=== PATIENT | female | born 1990 | race Caucasian/White ===

== ENCOUNTER 2018-10-08 06:50 | Emergency (ER) | payer MEDICAID, OTHER ==
[~2018-10-08] VITALS: Ht 160 cm; Wt 55.6 kg
[~2018-10-08 06:50] MED LIST: NITR100C6 PO; NO HOME MEDS
[2018-10-08 08:11] VITALS: BP 101/59
[2018-10-08] MEDS ORDERED: normal saline 1000ML IV soln IVB ONE ×2 (08:35)
--- NOTE | 2018-10-08 08:45 | NUR ---
Pt. wants to leave. Refusing IV start and labs. States she will go to [facility] tomorrow or [facility] later today.
--- NOTE | 2018-10-08 08:47 | NUR ---
Pt. signed AMA form.
== END 2018-10-08 08:50 | disposition left against medical advice (07) ==
LOC: ER 06:50
DX: O26.892 Other specified pregnancy related conditions, second trimester (principal); R50.9 Fever, unspecified; R05 Cough; J02.9 Acute pharyngitis, unspecified; R09.81 Nasal congestion; F17.200 Nicotine dependence, unspecified, uncomplicated; Z56.0 Unemployment, unspecified; Z88.0 Allergy status to penicillin; Z3A.25 25 weeks gestation of pregnancy
CPT/HCPCS: 99281

== ENCOUNTER 2019-06-19 09:59 | Emergency (ER) | payer MEDICAID ==
[~2019-06-19] VITALS: Ht 160 cm; Wt 60.3 kg
[2019-06-19 11:17] VITALS: BP 122/67
== END 2019-06-19 11:18 | disposition home or self-care (01) ==
LOC: ER 10:00
DX: R21 Rash and other nonspecific skin eruption (principal); F15.90 Other stimulant use, unspecified, uncomplicated; Z56.0 Unemployment, unspecified; Z88.0 Allergy status to penicillin; Z79.899 Other long term (current) drug therapy
CPT/HCPCS: 99281

== ENCOUNTER 2019-06-23 10:11 | Emergency (ER) | payer MEDICAID ==
[~2019-06-23] VITALS: Ht 160 cm; Wt 59.2 kg
[2019-06-23 10:13] VITALS: BP 110/74
[2019-06-23] MEDS ORDERED: CLIN300C71 PO (10:25)
[2019-06-23] MEDS ORDERED: CHLO473M3 PO (10:25)
== END 2019-06-23 10:48 | disposition home or self-care (01) ==
LOC: ER 10:11
DX: K04.7 Periapical abscess without sinus (principal); F15.90 Other stimulant use, unspecified, uncomplicated; Z56.0 Unemployment, unspecified; Z86.69 Personal history of other diseases of the nervous system and sense organs; Z88.0 Allergy status to penicillin; Z79.899 Other long term (current) drug therapy
CPT/HCPCS: 99283

== ENCOUNTER 2019-07-03 12:43 | Emergency (ER) | payer MEDICAID ==
[~2019-07-03] VITALS: Ht 160 cm; Wt 59.1 kg
[~2019-07-03 12:43] MED LIST changes: +CHLO473M3 PO; +CLIN300C71 PO
[2019-07-03 12:59] VITALS: BP 103/80
[2019-07-03] MEDS ORDERED: predniSONE 20 mg tablet PO ONE (14:45)
[2019-07-03] MEDS ORDERED: diphenhydrAMINE 25mg capsule PO ONE (14:45)
[2019-07-03] MEDS ORDERED: PRED20TA PO (14:53)
[2019-07-03] MEDS ORDERED: DIPH-423 PO (14:53)
[2019-07-03] MEDS ORDERED: EPIN0.3P3 TD (14:53)
== END 2019-07-03 15:14 | disposition home or self-care (01) ==
LOC: ER 12:43
DX: T63.441A Toxic effect of venom of bees, accidental (unintentional), initial encounter (principal); F15.90 Other stimulant use, unspecified, uncomplicated; Z56.0 Unemployment, unspecified; Z86.69 Personal history of other diseases of the nervous system and sense organs; Z88.0 Allergy status to penicillin; Z79.899 Other long term (current) drug therapy; Y92.89 Other specified places as the place of occurrence of the external cause
CPT/HCPCS: 99283; J7512; Q0163

== ENCOUNTER 2019-07-18 07:33 | Emergency (ER) | payer MEDICAID ==
[~2019-07-18] VITALS: Ht 160 cm; Wt 56.0 kg
[~2019-07-18 07:33] MED LIST changes: +DIPH-423 PO; +EPIN0.3P3 TD; +PRED20TA PO
[2019-07-18 07:35] VITALS: BP 103/65
[2019-07-18] MEDS ORDERED: PRED20TA PO (07:54)
[2019-07-18] MEDS ORDERED: CLIN150C2 PO (07:54)
[2019-07-18] MEDS ORDERED: HYDR-3965 PO (07:54)
[2019-07-18] MEDS ORDERED: acetaminophen 325mg tablet PO ONE (07:55)
[2019-07-18] MEDS ORDERED: ONDA4TAB6 PO (07:56)
== END 2019-07-18 08:14 | disposition home or self-care (01) ==
LOC: ER 07:33
DX: K04.7 Periapical abscess without sinus (principal); K08.89 Other specified disorders of teeth and supporting structures; F15.90 Other stimulant use, unspecified, uncomplicated; Z86.69 Personal history of other diseases of the nervous system and sense organs; Z56.0 Unemployment, unspecified; Z88.0 Allergy status to penicillin; Z79.899 Other long term (current) drug therapy
CPT/HCPCS: 99283

== ENCOUNTER 2019-08-14 19:09 | Emergency (ER) | payer MEDICAID, OTHER ==
[~2019-08-14] VITALS: Ht 160 cm; Wt 59.1 kg
[~2019-08-14 19:09] MED LIST changes: +CLIN150C2 PO; +HYDR-3965 PO; +ONDA4TAB6 PO
[2019-08-14 19:13] VITALS: BP 104/67
[2019-08-14] MEDS ORDERED: IBUP-1984 PO (20:51)
[2019-08-14] MEDS ORDERED: ibuprofen tablet 400 MG TABLET PO ONE (20:55)
== END 2019-08-14 21:13 | disposition home or self-care (01) ==
LOC: ER 19:10
DX: S93.492A Sprain of other ligament of left ankle, initial encounter (principal); F15.90 Other stimulant use, unspecified, uncomplicated; Z86.69 Personal history of other diseases of the nervous system and sense organs; Z88.0 Allergy status to penicillin; Z79.899 Other long term (current) drug therapy; X50.1XXA Overexertion from prolonged static or awkward postures, initial encounter; Y93.89 Activity, other specified; Y92.89 Other specified places as the place of occurrence of the external cause; Y99.8 Other external cause status
CPT/HCPCS: 29515; 73610; 99284

== ENCOUNTER 2019-08-25 22:17 | Emergency (ER) | payer MEDICAID, OTHER ==
[~2019-08-25] VITALS: Ht 160 cm; Wt 56.0 kg
[~2019-08-25 22:17] MED LIST changes: -CLIN150C2 PO; -HYDR-3965 PO; -PRED20TA PO
[2019-08-26] MEDS ORDERED: CLIN300C70 PO (00:23)
[2019-08-26] MEDS ORDERED: IBUP-1984 PO (00:23)
[2019-08-26 00:33] VITALS: BP 98/58
== END 2019-08-26 00:30 | disposition home or self-care (01) ==
LOC: ER 22:17
DX: K04.7 Periapical abscess without sinus (principal); K02.9 Dental caries, unspecified; F15.90 Other stimulant use, unspecified, uncomplicated; Z86.69 Personal history of other diseases of the nervous system and sense organs; Z88.0 Allergy status to penicillin; Z79.899 Other long term (current) drug therapy
CPT/HCPCS: 99283

== ENCOUNTER 2019-08-31 10:24 | Emergency (ER) | payer MEDICAID ==
[~2019-08-31] VITALS: Ht 160 cm; Wt 56.8 kg
[~2019-08-31 10:24] MED LIST changes: +CLIN300C70 PO; +IBUP-1984 PO
[2019-08-31 10:38] VITALS: BP 105/55
== END 2019-08-31 11:30 | disposition home or self-care (01) ==
LOC: ER 10:25
DX: Z02.1 Encounter for pre-employment examination (principal); F15.90 Other stimulant use, unspecified, uncomplicated; Z88.0 Allergy status to penicillin; Z91.030 Bee allergy status
CPT/HCPCS: 99281

== ENCOUNTER 2019-09-15 15:21 | Emergency (ER) | payer MEDICAID ==
[~2019-09-15] VITALS: Ht 160 cm; Wt 54.0 kg
[~2019-09-15 15:21] MED LIST changes: -CLIN300C70 PO; -IBUP-1984 PO
[2019-09-15 17:02] VITALS: BP 83/46
[2019-09-15] MEDS ORDERED: normal saline 1000ML IV soln IVB ONE (17:10)
[2019-09-15] MEDS ORDERED: acetaminophen 325mg tablet PO ONE (17:20)
== END 2019-09-15 17:43 | disposition left against medical advice (07) ==
LOC: ER 15:22
DX: M79.18 Myalgia, other site (principal); R50.9 Fever, unspecified; R11.2 Nausea with vomiting, unspecified; F15.90 Other stimulant use, unspecified, uncomplicated; Z88.0 Allergy status to penicillin; Z91.030 Bee allergy status
CPT/HCPCS: 99281

== ENCOUNTER 2019-10-26 09:41 | Emergency (ER) | payer MEDICAID ==
[~2019-10-26] VITALS: Ht 160 cm; Wt 56.8 kg
[2019-10-26 10:27] LABS: CLARITY,URINE CLEAR (Clear); COLOR,URINE YELLOW (Yellow); GLUCOSE, URINE NEGATIVE (Neg); KETONES,URINE NEGATIVE (Neg); LEUKOCYTE ESTERASE ,URINE SMALL (Neg); NITRITES, URINE NEGATIVE (Neg); OCCULT BLOOD,URINE SMALL (Neg); PROTEIN,URINE TRACE mg/dl (Neg); UROBILINOGEN,URINE 0.2 E.U/dL (0.2-1.0)
[2019-10-26 10:28] LABS: UA COLLECTION TYPE CLN CATCH MIDSTREAM; URINE HCG NEGATIVE (NEG)
[2019-10-26 10:33] LABS: MUCUS STRANDS MODERATE /LPF (Neg); SQUAMOUS EPITHELIAL CELL,UR MANY /LPF (FEW)
[2019-10-26 10:35] LABS: BACTERIA,URINE 1+ /HPF (Neg); WBC CLUMPS,URINE FEW /HPF (NEGATIVE)
[2019-10-26 10:36] LABS: CAL OXALATE CRYSTALS 1+ /HPF (NEGATIVE)
[2019-10-26 10:43] LABS: BASOPHILS % (AUTO) 0.4 % (0-1); EOSINOPHILS # (AUTO) 0.2 X10'3 (0-0.9); EOSINOPHILS % (AUTO) 1.5 % (0-6); HEMATOCRIT 39.9 % (35.0-45.0); HEMOGLOBIN 13.7 g/dl (12.0-16.0); LYMPHOCYTES # (AUTO) 1.1 X10'3 (1.1-4.8); LYMPHOCYTES % (AUTO) 10.5 % (21-51); MEAN CORPUSCULAR HEMOGLOBIN 29.6 PG (27.0-31.0); MEAN CORPUSCULAR HGB CONC 34.2 g/dL (33.0-36.5); MEAN CORPUSCULAR VOLUME 86.4 FL (78-98); MEAN PLATELET VOLUME 7.3 FL (7.4-10.4); MONOCYTES # (AUTO) 0.2 X10'3 (0-0.9); MONOCYTES % (AUTO) 1.8 % (2-12); NEUTROPHILS # (AUTO) 9.1 X10'3 (1.8-7.7); NEUTROPHILS % (AUTO) 85.8 % (42-75); PLATELET COUNT 510 X10'3 (140-440); RED BLOOD COUNT 4.61 X10'6 (4.20-5.60); RED CELL DISTRIBUTION WIDTH 13.8 % (11.5-14.5); WHITE BLOOD COUNT 10.5 X10'3 (4.5-11.0)
[2019-10-26 10:55] LABS: ALANINE AMINOTRANSFERASE 145 U/L (12-78); ALBUMIN 3.3 G/DL (3.4-5.0); ALBUMIN/GLOBULIN RATIO 0.7 (1.1-1.5); ALKALINE PHOSPHATASE 135 IU/L (46-116); ANION GAP 8 (8-16); ASPARTATE AMINO TRANSFERASE 97 U/L (10-37); BILIRUBIN,TOTAL 0.2 MG/DL (0.1-1.0); BLOOD UREA NITROGEN 12 MG/DL (7-18); BUN/CREATININE RATIO 18.8 (6.6-38.0); CALCIUM 8.9 MG/DL (8.5-10.1); CHLORIDE 102 MMOL/L (99-107); CREATININE 0.64 MG/DL (0.40-0.90); GLUCOSE 103 MG/DL (70-104); LIPASE < 50 U/L (73-393); POTASSIUM 3.6 MMOL/L (3.5-5.1); SODIUM 140 MMOL/L (135-145); TOTAL PROTEIN 8.3 G/DL (6.4-8.2); eGFR > 90 ML/MIN
[2019-10-26] MEDS ORDERED: diazepam inj 5 MG/ML inj. IV ONE (11:10)
[2019-10-26] MEDS ORDERED: normal saline 1000ML IV soln IVB ONE (11:10)
[2019-10-26 11:11] VITALS: BP 113/70
--- NOTE | 2019-10-26 11:29 | NUR ---
Pt refusing to be "poked" for an IV stating, "you guys will make me look like a junky. If I am being poked, I will poke myself." Let pt know that we are not able to allow her to start her own IV. Pt refused medications.
[2019-10-26] MEDS ORDERED: IBUP-1984 PO (12:41)
== END 2019-10-26 12:56 | disposition home or self-care (01) ==
LOC: ER 09:42
DX: R10.84 Generalized abdominal pain (principal); K59.00 Constipation, unspecified; R11.0 Nausea; F15.90 Other stimulant use, unspecified, uncomplicated; Z88.0 Allergy status to penicillin
CPT/HCPCS: 36415; 74176; 80053; 81001; 81025; 83690; 85025; 99284

== ENCOUNTER 2021-10-01 16:29 | Emergency (ER) | payer MEDICAID ==
[~2021-10-01] VITALS: Ht 160 cm; Wt 59.0 kg
[2021-10-01 16:55] VITALS: BP 87/56
[2021-10-01] MEDS ORDERED: ALBU6.7H9 INH (17:34)
--- NOTE | 2021-10-01 17:45 | NUR ---
Pt given and understands d/c instructions. Ambulatory with a steady gait.
== END 2021-10-01 17:45 | disposition home or self-care (01) ==
LOC: ER 16:30
DX: U07.1 COVID-19 (principal); J06.9 Acute upper respiratory infection, unspecified; F15.90 Other stimulant use, unspecified, uncomplicated; Z72.0 Tobacco use; Z86.69 Personal history of other diseases of the nervous system and sense organs; Z88.0 Allergy status to penicillin; Z79.2 Long term (current) use of antibiotics; Z79.899 Other long term (current) drug therapy
CPT/HCPCS: 36415; 99283; U0003; U0005

== ENCOUNTER 2023-04-28 21:19 | Emergency (ER) | payer MEDICAID ==
[~2023-04-28] VITALS: Ht 160 cm; Wt 53.2 kg
[~2023-04-28 21:19] MED LIST changes: +ALBU6.7H14 INH
[2023-04-28 21:45] VITALS: BP 86/54; PULSE 103; RESP 18; TEMP 101; O2SAT 97
[2023-04-28] MEDS ORDERED: acetaminophen 325mg tablet PO ONE (21:55)
--- NOTE | 2023-04-28 22:18 | NUR ---
Lab states that the patient moved her arm when she was getting drawn and than was mad that the marine engine machinist didn't "go in my hand like they do at [facility]" Than the patient was mad that she was going to have another blood draw stating "all I came here for was a UTI" pt stormed out of building. Attempted to call the pt back, however, her number is not in service.
[2023-04-28 22:27] LABS: BASOPHILS % (AUTO) 0.4 % (0-1); EOSINOPHILS # (AUTO) 0.1 X10'3 (0-0.9); HEMATOCRIT 30.4 % (35.0-45.0); HEMOGLOBIN 10.3 g/dl (12.0-16.0); LYMPHOCYTES # (AUTO) 1.6 X10'3 (1.1-4.8); LYMPHOCYTES % (AUTO) 15.7 % (21-51); MEAN CORPUSCULAR HEMOGLOBIN 29.3 PG (27.0-31.0); MONOCYTES # (AUTO) 0.8 X10'3 (0-0.9); MONOCYTES % (AUTO) 7.8 % (2-12); NEUTROPHILS # (AUTO) 7.6 X10'3 (1.8-7.7); NEUTROPHILS % (AUTO) 75.1 % (42-75); PLATELET COUNT 415 X10'3 (140-440); RED BLOOD COUNT 3.53 X10'6 (4.20-5.60); RED CELL DISTRIBUTION WIDTH 14.8 % (11.5-14.5); WHITE BLOOD COUNT 10.1 X10'3 (4.5-11.0)
[2023-04-28 23:02] LABS: ANION GAP 8 (8-16); BILIRUBIN,TOTAL 0.5 MG/DL (0.1-1.0); BLOOD UREA NITROGEN 10 MG/DL (7-18); BUN/CREATININE RATIO 15.2 (10.0-20.0); CALCIUM 9.1 MG/DL (8.5-10.1); CHLORIDE 97 MMOL/L (99-107); CREATININE 0.66 MG/DL (0.40-0.90); GLUCOSE 98 MG/DL (70-104); POTASSIUM 4.2 MMOL/L (3.5-5.1); SODIUM 135 MMOL/L (135-145); TOTAL CARBON DIOXIDE 30.3 MMOL/L (24-32); TOTAL PROTEIN 7.2 G/DL (6.4-8.2); eCRCL 98 ML/MIN; eGFR > 90 ML/MIN
[2023-04-28 23:03] LABS: ALANINE AMINOTRANSFERASE 26 U/L (12-78); ALBUMIN 3.1 G/DL (3.4-5.0); ALBUMIN/GLOBULIN RATIO 0.8 (1.1-1.5); ALKALINE PHOSPHATASE 97 IU/L (46-116); ASPARTATE AMINO TRANSFERASE 20 U/L (10-37)
== END 2023-04-28 23:29 | disposition left against medical advice (07) ==
LOC: ER 21:19
DX: R50.9 Fever, unspecified (principal); Z53.21 Procedure and treatment not carried out due to patient leaving prior to being seen by health care provider
CPT/HCPCS: 36415; 80053; 83605; 84145; 85025; 99281

== ENCOUNTER 2025-01-07 06:16 | Emergency (ER) | payer MEDICAID ==
[~2025-01-07] VITALS: Ht 160 cm; Wt 60.9 kg
[~2025-01-07 06:16] MED LIST changes: +CHLO473M13 PO; -CHLO473M3 PO
--- NOTE | 2025-01-07 06:26 | Physician Documentation ---
History of Present Illness Chief Complaint: Flank Pain Stated Complaint: ABDOMINAL PAIN Time Seen by MD: 06:22 Primary Medical Doctor: NONE HPI This is a 34-year-old female who comes in for evaluation of right-sided flank pain that woke her from sleep this morning. No obvious trigger, trauma provocation. The particular palliating or aggravating factors. Did not attempt to treat it because she does not have access to any [id number] medications. This never happened in the past. Describes the pain as sharp, waxing and waning in its intensity, with a moderate to severe in its intensity. The pain radiates into her right lower quadrant. The patient smokes cigarettes, denies use of alcohol and admits to using methamphetamines. The patient denies any chance of being . Medication Reconciliation Allergies: Coded Allergies: Penicillins (Verified Allergy, Unknown, 08/14/19) Uncoded Allergies: BEES (Allergy, Severe, anaphylaxis, 08/25/19) Scheduled Albuterol Sulfate (Proventil Hfa), 2 PUFFS INH Q6H Chlorhexidine Gluconate (Periogard), 15 ML PO Q12H Clindamycin HCl (Clindamycin HCl), 1 TAB-CAP PO QID Diphenhydramine Hcl (Benadryl), 25 MG PO Q6H PRN ITCHING Epinephrine (Epipen 2-Manuel), 1 APPLIC TD ONCE Nitrofurantoin Monohyd/M-Cryst (Macrobid 100 mg Capsule), 1 CAP PO BID Scheduled PRN Ondansetron Hcl (Zofran), 1 TAB PO Q6H PRN for nausea/vomiting Miscellaneous Medications Home Med List (No Home Medications), (Reported) Past Medical History Past Medical History: Seizures Past Surgical History: no surgical history Alcohol Use: None Drug Use: methamphetamine Lives with: Father Occupation: employed Review of Systems ROS 10 point review of systems was performed and unless noted above in HPI is negative for acute process/complaint. Physical Exam Vital Signs: Temperature: 98.0, Heart Rate: 75, Respiratory Rate: 16, BP: 120/69, Pulse Oximetry: 98, Weight: 60.910 Physical Exam GENERAL: Awake, alert, oriented, GCS 15, no apparent distress, non-toxic appearing, answers questions, follows commands appropriately. HEENT: Atraumatic, normocephalic, pupils equal, extraocular muscles intact, sclerae anicteric, mucus membranes moist, oropharynx is clear, no stridor. NECK: supple, full active range of motion, trachea midline, no thyromegaly, no lymphadenopathy, no JVD. CARDIOVASCULAR: regular rate/rhythm, no murmurs/gallops/rubs, Pulses are 2+ in all extremities and symmetric. Capillary refill less than 2 seconds. PULMONARY: Nonlabored, good air movement ,no respiratory distress, speaking in full sentences, clear to auscultation bilaterally, no wheezing, no ronchi, no rales, no accessory muscle use. GASTROINTESTINAL: Soft, non-tender, non-distended, normal active bowel sounds, no organomegaly, no pulsatile masses, right CVA tenderness. NEUROLOGIC: Lucid with normal mental status. Normal facial symmetry. Moves all extremities symmetrically and with purpose. No truncal ataxia. Speech is fluid without evidence of dysarthria or aphasia, no focal deficits appreciated. MUSCULOSKELETAL: There is full range of motion of all extremities. There is no joint pain or joint swelling or joint erythema. There is no muscle pain or tenderness or swelling. EXTREMITIES: warm, well-perfused, no cyanosis, no clubbing, no edema, no acute deformities. Skin: warm, dry, no rashes or lesions, no jaundice, no petechiae orpurpura. No ecchymosis. PSYCHIATRIC: Normal affect, normal insight, normal concentration. Focused exam: [] Progress Results/Orders Results/Orders Orders - PEDRO CHAMORRO DO Urinalysis, Cult If Indicated (01/07/25 06:18) Hcg, Ur Ql (01/07/25 06:18) Cbc/Diff (01/07/25 06:18) Lipase (01/07/25 06:18) CMP (01/07/25 06:18) Drug Screen, Urine (01/07/25 06:22) Ct Abdomen Pelvis (01/07/25 06:22) Hcg Serum Ql (01/07/25 06:22) Ketorolac Trometh 30mg/Ml Vial (Toradol (01/07/25 06:22) Vital Signs 01/07/25 06:20 Temp 98.0 Pulse 75 Resp 16 B/P (MAP) 120/69 Pulse Ox 98 Medical Decision Making Findings Facility Status: ED Holds, E process The plan was discussed with the patient, who demonstrates clear understanding of the plan and is in agreement with the plan unless otherwise noted in the chart. All questions have been answered, all concerns were addressed unless otherwise documented. I was available throughout their ED stay for frequent reassessment and questions. Differential Diagnoses (considered and possible or likely): [Differential diagnosis considered includes acute appendicitis, acute cholecystitis, pancreatitis, gastritis, PUD, diverticulitis, mesenteric ischemia, abdominal aortic aneurysm, bowel obstruction, enteritis, colitis, fecal impaction, volvulus, IBS, inflammatory bowel disease, specific food intolerance, peritonitis, perforated viscous, malignancy, UTI, abscess, and abdominal pain NOS. Pelvic source of pain was also considered including endometritis, dysmenorrhea, ovarian cyst, ovarian torsion, PID, TOA, cervicitis, vaginitis, or uterine fibroid. History, physical exam, and workup exclude many of the more serious causes listed above. ] ??Differential Diagnoses (considered and unlikely, not requiring evaluation currently): [Aortic/great vessels dissection was considered but it is unlikely based on absence of ripping, tearing, migratory chest pain, absence of syncope or focal neurologic deficits, physical examination indicating equal and symmetric pulses.] MDM Data Please see HPI for the following: Independent Historians and external Records Review. Historian: [Patient] Independent Historians: ?[Record review] Medication Management: [Reviewed medication list] Social History and determinants: [Reviewed] Please see the body of the note for the following: Any independent interpretations of ECG, imaging studies. All vitals signs/haemodynamics, ordered tests were independently reviewed and interpreted by myself. Nursing triage complaint and vitals reviewed, additional nursing notes were reviewed as available and I agree unless otherwise noted or documented in contradiction in the chart Vital Signs: Independently reviewed Labs: Independently interpreted Imaging: Independently interpreted Old Medical Records: Independently reviewed, see HPI for relevant summary and information Pulse Oximetry: [97%] interpreted as [normal on room air] by me [Lan/Wan Engineer: [Regular Rate, Regular rhythm, no ectopy, NSR] reviewed and interpreted by me] Additionally notably showing: [Hemodynamically she is stable. Laboratory workup notable for leuko urea, hematuria, minimal leukocyte esterase. No white count. CT on my independent interpretation is positive for hydronephrosis and a stone in his distal right ureter. Radiology read confirms a 4 mm stone. I] Tests considered but not ordered include: [Not applicable] Social Determinants of Health Impact: Patient was [facility] in [facility], or [facility] [place] to healthcare due to below par ratio of patient to medical providers. [] Comorbid Conditions Impacting Present Evaluation and Care/Treatment: [Polysubstance use] Management Discussions with other Healthcare Providers: [None] Treatment and Disposition Medication Management (Given or considered): [Pain management]. See EMR for details Consideration for Hospitalization/Escalation/Deescalation of Care: Admission for observation has been considered, [however the patient is able to tolerate p.o., their symptoms are controlled, they are able to rely on oral medications, and their chief complaint/diagnosis can be managed on outpatient basis.] ?ED Course:?[No clinical deterioration. Most likely white count and urine related to hematuria rather than infection. Prophylactic antibiotics will be prescribed.] ?Shared decision making:?[Patient is hemodynamically stable for discharge home with follow with their primary care provider. [Narcotic medication prescription has been considerably the given her fentanyl use, her risk of overdose is high. ] Specific and cautious return precautions provided and discussed with full understanding. Any incidental findings were also discussed and follow up recommendations given. [] All questions answered. Patient/family were able to verbalize back return precautions. Patient/family agree to plan. Copies of imaging and laboratory studies were provided.] Code status:?FULL Please see the full Electronic Medical Record for full details of nursing documentation, medications list, other records of complete past medical history and conditions, vital signs, laboratory studies, and any radiologic study interpretations by radiologists. Portions of this note were completed using [employer] dictation software and as a result there may exist minor errors in spelling. I have reviewed elements of past family and social history and agree as included in note. Departure Disposition: HOME / SELF CARE / HOMELESS Impression: Primary Impression: Right flank pain Additional Impressions: Methamphetamine abuse Renal colic Calculus of kidney Fentanyl dependence Condition: Improved Discharge Instructions: Kidney Stones Referrals: NO PRIMARY CARE PROVIDER (PCP) Prescriptions Cefpodoxime Proxetil (Cefpodoxime Proxetil) 100 Mg Tablet 1 TAB PO Q12H for 7 Days, #14 TAB 0 Refills Prov: PEDRO CHAMORRO DO 01/07/25 Naproxen (Naproxen) 500 Mg Tablet 1 TAB PO Q12H, #20 TAB Prov: PEDRO CHAMORRO DO 01/07/25 Education Educated: Patient Educated regarding: diagnosis, treatment, prognosis, need for follow up Signature Scribe Signature: No scribe Attestation: This note accurately reflects clinical decisions, work performed by myself, DO PEDRO PABLO Restrepo NICHOLAS M DO January 07, 2025 06:26
[2025-01-07] MEDS: ketorolac trometh 30MG/ML vial 30 MG/ML VIAL IV STA (06:42)
[2025-01-07 07:38] LABS: BASOPHILS # (AUTO) 0.1 X10'3 (0-0.2); BASOPHILS % (AUTO) 0.8 % (0-1); EOSINOPHILS # (AUTO) 0.3 X10'3 (0-0.9); EOSINOPHILS % (AUTO) 4.9 % (0-6); HEMATOCRIT 40.6 % (35.0-45.0); HEMOGLOBIN 13.7 g/dl (12.0-16.0); LYMPHOCYTES # (AUTO) 1.8 X10'3 (1.1-4.8); LYMPHOCYTES % (AUTO) 26.1 % (21-51); MEAN CORPUSCULAR HEMOGLOBIN 29.7 PG (27.0-31.0); MEAN CORPUSCULAR HGB CONC 33.8 g/dL (33.0-36.5); MEAN PLATELET VOLUME 7.2 FL (7.4-10.4); MONOCYTES # (AUTO) 0.4 X10'3 (0-0.9); MONOCYTES % (AUTO) 5.2 % (2-12); NEUTROPHILS # (AUTO) 4.3 X10'3 (1.8-7.7); PLATELET COUNT 484 X10'3 (140-440); RED BLOOD COUNT 4.62 X10'6 (4.20-5.60); WHITE BLOOD COUNT 6.8 X10'3 (4.5-11.0)
[2025-01-07 07:49] LABS: HCG SERUM QL NEGATIVE
[2025-01-07 08:01] LABS: ALANINE AMINOTRANSFERASE 33 U/L (12-78); ALBUMIN 3.5 G/DL (3.4-5.0); ALBUMIN/GLOBULIN RATIO 0.8 (1.1-1.5); ALKALINE PHOSPHATASE 163 IU/L (46-116); ANION GAP 10 (8-16); ASPARTATE AMINO TRANSFERASE 28 U/L (10-37); BILIRUBIN,TOTAL 0.4 MG/DL (0.1-1.0); BLOOD UREA NITROGEN 9 MG/DL (7-18); BUN/CREATININE RATIO 12.5 (10.0-20.0); CHLORIDE 102 MMOL/L (99-107); CREATININE 0.72 MG/DL (0.40-0.90); GLUCOSE 117 MG/DL (70-104); LIPASE 11 U/L (16-77); POTASSIUM 3.8 MMOL/L (3.5-5.1); SODIUM 138 MMOL/L (135-145); TOTAL PROTEIN 7.9 G/DL (6.4-8.2); eCRCL 89 ML/MIN; eGFR > 90 ML/MIN
[2025-01-07] MEDS ORDERED: iohexol 300mg/ml 100ml inj. ONE (08:27)
--- NOTE | 2025-01-07 09:49 | RADIOLOGY REPORT ---
Exam: CT CT ABDOMEN PELVIS W/ IV CONTRAST History: R flank pain --> RLQ TECHNIQUE: Multiple contiguous axial CT images of the abdomen and pelvis were obtained with intraveno us contrast. The images were reformatted to generate coronal and sagittal reconstructions. 100 cc of Omnipaque 350 contrast was injected intravenously. All CT scans at this medical facility are performed using dose modulation techniques as appropriate t o a performed exam including the following:Automated exposure control was utilized; adjustment of the MA and/or KV according to patient size; and use of iterative reconstruction technique. Radiation Dose Information: CT Dose: CTDI volume is 14 mGy. Dose-length product is 708 mGy*cm Comparison: None FINDINGS: There is a 4 mm calculus in the distal right ureter, just proximal to the UVJ. There is moderate rig ht hydroureteronephrosis. There is no evidence of left renal nephrolithiasis or hydronephrosis. The liver, gallbladder, pancreas, adrenal glands, and spleen appear within normal limits. There is no evidence of abdominal lymphadenopathy. There is no free fluid or free air. The stomach grossly appears unremarkable. The small and large bowel loops demonstrate normal caliber and distribution. The appendix is not seen in the right lower quadrant abdomen. There are no seconda ry signs of acute appendicitis. There is moderate amount of stool in the colon. The abdominal aorta and IVC appear within normal limits. The bladder appears within normal limits the degree of distention. Uterus appears within normal limit s. There are multiple follicles in both ovaries. There is no evidence of a pelvic mass or lymphadenop athy. There is no free fluid collection. Lung bases are clear. There is no acute osseous abnormality. IMPRESSION: 1. 4 mm calculus in the distal right ureter. There is moderate right hydroureteronephrosis. 2. Moderate amount of stool in the colon. HS:Y
[2025-01-07 10:16] VITALS: TEMP 98
[2025-01-07 10:30] LABS: URINE HCG NEGATIVE (NEG)
[2025-01-07 10:33] LABS: BILIRUBIN,URINE NEGATIVE (Neg); CLARITY,URINE SLIGHTLY CLOUDY (Clear); COLOR,URINE YELLOW (Yellow); GLUCOSE, URINE NEGATIVE (Neg); KETONES,URINE NEGATIVE (Neg); LEUKOCYTE ESTERASE ,URINE SMALL (Neg); NITRITES, URINE NEGATIVE (Neg); OCCULT BLOOD,URINE LARGE (Neg); PH,URINE 6.5 (4.8-8.0); PROTEIN,URINE NEGATIVE (Neg); UROBILINOGEN,URINE 0.2 E.U/dL (0.2-1.0)
[2025-01-07 10:35] LABS: UA COLLECTION TYPE CLN CATCH MIDSTREAM
[2025-01-07 10:40] LABS: SQUAMOUS EPITHELIAL CELL,UR MODERATE /LPF (FEW)
[2025-01-07 10:43] LABS: BACTERIA,URINE 2+ /HPF (Neg); RBC,URINE 50-100 /HPF (0-2)
[2025-01-07 10:45] LABS: MUCUS STRANDS FEW /LPF (Neg); WBC,URINE 30-50 /HPF (0-4)
[2025-01-07 10:46] LABS: URINE AMPHETAMINE SCREEN POSITIVE (Neg); URINE BARBITUATE SCREEN NEGATIVE (Neg); URINE BENZODIAZEPINES SCREEN NEGATIVE (Neg); URINE CANNABINOID SCREEN NEGATIVE (Neg); URINE COCAINE SCREEN NEGATIVE (Neg); URINE METHADONE SCREEN POSITIVE (Neg); URINE OPIATE SCREEN NEGATIVE (Neg); URINE PHENCYCLIDINE SCREEN NEGATIVE (Neg)
[2025-01-07] MEDS ORDERED: NAPR-56 PO (10:51)
[2025-01-07] MEDS ORDERED: CEFP100T7 PO (10:52)
[2025-01-07 11:24] VITALS: BP 109/68; PULSE 80; RESP 15; O2SAT 99
== END 2025-01-07 11:26 | disposition home or self-care (01) ==
LOC: ER 06:17
DX: N13.2 Hydronephrosis with renal and ureteral calculous obstruction (principal); F15.10 Other stimulant abuse, uncomplicated; F11.20 Opioid dependence, uncomplicated; F17.210 Nicotine dependence, cigarettes, uncomplicated; Z88.0 Allergy status to penicillin; Z79.899 Other long term (current) drug therapy
CPT/HCPCS: 36415; 74177; 80053; 80305; 81001; 81025; 83690; 84703; 85025; 87077; 87088; 87186; 96374; 99285; J1885; Q9967